=== PATIENT | female | born 1990 | race Asian ===

== ENCOUNTER 2018-04-27 19:05 | Emergency (ER) | payer OTHER ==
[~2018-04-27] VITALS: Ht 162.6 cm; Wt 54.4 kg
[2018-04-27] MEDS ORDERED: Cyclobenzaprine5 MG PO (20:28)
[2018-04-27] MEDS ORDERED: KETO10 PO (20:28)
== END 2018-04-27 20:33 | disposition home or self-care (01) ==
LOC: ER 19:05
DX: S16.1XXA Strain of muscle, fascia and tendon at neck level, initial encounter (principal); V43.62XA Car passenger injured in collision with other type car in traffic accident, initial encounter
CPT/HCPCS: 72040; 99284-25